=== PATIENT | male | born 2000 | race Caucasian/White ===

== ENCOUNTER 2022-04-14 11:45 | Inpatient (IN) | payer MEDICAID, OTHER ==
[~2022-04-14] VITALS: Ht 175.3 cm; Wt 81.7 kg
[2022-04-14 12:32] LABS: BASOPHILS % (AUTO) 0.7 % (0.0-2.0); HEMATOCRIT 46.9 % (41-53); HEMOGLOBIN 15.9 g/dL (13.5-17.5); LYMPHOCYTES # (AUTO) 1.3 K/uL (1.0-4.8); LYMPHOCYTES % (AUTO) 17.5 % (22.0-44.0); MEAN CORPUSCULAR HEMOGLOBIN 28.1 pg (26.0-34.0); MEAN CORPUSCULAR HGB CONC 33.9 G/dL (31.0-37.0); MEAN CORPUSCULAR VOLUME 83 fL (80-100); MONOCYTES # (AUTO) 0.4 K/uL (0.1-1.0); MONOCYTES % (AUTO) 5.4 % (2.0-9.0); NEUTROPHILS # (AUTO) 5.8 K/uL (1.8-7.7); NEUTROPHILS % (AUTO) 75.4 % (40.0-70.0); PLATELET COUNT (AUTO) 289 K/uL (150-450); RED BLOOD CELL COUNT(AUTO) 5.67 MIL/uL (4.50-5.90); RED CELL DISTRIBUTION WIDTH 12.6 % (11.5-14.5)
[2022-04-14 12:42] LABS: ANION GAP 4 mmol/L (8-16); CALCIUM, TOTAL 9.3 mg/dL (8.8-10.5); CARBON DIOXIDE 32 mmol/L (22-29); CHLORIDE 104 mmol/L (98-107); CREATININE 1.31 mg/dL (0.60-1.30); GLUCOSE,RANDOM 100 mg/dL (70-110); POTASSIUM 3.9 mmol/L (3.5-5.1); SODIUM SERUM 140 mmol/L (136-145); UREA NITROGEN, BLOOD 17 mg/dL (7-18)
[2022-04-14 12:43] LABS: GLOMERULAR FILTR. RATE CALC > 60 mL/min (>60)
[2022-04-14 12:43] LABS: AMPHET/METH SCREEN,URINE POSITIVE (NEGATIVE); BARBITURATE SCREEN, URINE NEGATIVE (NEGATIVE); BENZODIAZEPINES SCREEN,URINE NEGATIVE (NEGATIVE); CANNABINOID SCREEN,URINE NEGATIVE (NEGATIVE); COCAINE SCREEN,URINE NEGATIVE (NEGATIVE); METHADONE SCREEN, URINE NEGATIVE (NEGATIVE); OPIATE SCREEN,URINE NEGATIVE (NEGATIVE)
[2022-04-14 12:44] LABS: PHENCYCLIDINE SCREEN,URINE NEGATIVE (NEGATIVE)
[2022-04-14 12:48] LABS: ALANINE AMINOTRANSFERASE 26 U/L (12-78); ALBUMIN 4.2 g/dL (3.4-5.0); ALKALINE PHOSPHATASE 88 U/L (46-116); ASPARTATE AMINOTRANSFERASE 17 U/L (15-37); BILIRUBIN,TOTAL 0.8 mg/dL (0.1-1.0); TOTAL PROTEIN, SERUM 7.6 g/dL (6.4-8.2)
[2022-04-14] MEDS ORDERED: HALOPERIDOL LACTATE 5 MG/ML VIAL IM ONE (14:15)
[2022-04-14] MEDS ORDERED: DiphenhydrAMINE HCL 50 MG/ML VIAL IM ONE (14:15)
[2022-04-14] MEDS ORDERED: LORazepam 2 MG/ML VIAL IM ONE (14:15)
[2022-04-14] MEDS ORDERED: HALOPERIDOL 5 MG TABLET PO PRN (14:45)
[2022-04-14] MEDS ORDERED: ZOLPIDEM TARTRATE 10 MG TABLET PO PRN (14:45)
[2022-04-14 15:51] LABS: COVID AG,FIA SOURCE NASAL SWAB
[2022-04-14 19:39] VITALS: BP 115/64
[2022-04-15 08:12] VITALS: BP 120/83
[2022-04-15] MEDS: LORazepam 2 MG TABLET PO PRN (10:56)
[2022-04-15 20:13] VITALS: BP 118/78
[2022-04-15] MEDS: OLANZapine 5 MG TABLET PO SCH (20:22)
[2022-04-16 08:10] VITALS: BP 109/66
[2022-04-16] MEDS: OLANZapine 5 MG TABLET PO SCH ×2 (08:44→20:04)
[2022-04-16] MEDS: LORazepam 2 MG TABLET PO PRN (08:44)
[2022-04-16 20:40] VITALS: BP 111/68
[2022-04-17] MEDS: OLANZapine 5 MG TABLET PO SCH ×2 (08:55→21:55)
[2022-04-17 09:38] VITALS: BP 106/64
[2022-04-17 20:15] VITALS: BP 109/62
[2022-04-18 08:16] VITALS: BP 107/66
[2022-04-18] MEDS: OLANZapine 5 MG TABLET PO SCH ×2 (08:48→21:02)
[2022-04-18 20:18] VITALS: BP 106/60
[2022-04-19 08:29] VITALS: BP 103/60
[2022-04-19] MEDS: OLANZapine 5 MG TABLET PO SCH ×2 (09:00→21:05)
[2022-04-19 20:20] VITALS: BP 109/64
[2022-04-20] MEDS: OLANZapine 5 MG TABLET PO SCH ×2 (09:02→20:29)
[2022-04-20 09:45] VITALS: BP 100/59
[2022-04-20 20:12] VITALS: BP 108/65
[2022-04-21 07:01] VITALS: BP 131/74
[2022-04-21 08:23] VITALS: BP 131/70
[2022-04-21] MEDS: OLANZapine 5 MG TABLET PO SCH (09:13)
[2022-04-21] MEDS ORDERED: OLAN5TAB52 PO (11:23)
== END 2022-04-21 13:35 | disposition home or self-care (01) | DRG 751 ==
LOC: EMS 11:47 → B3A 16:10
PROVIDERS: ADMIT Psychiatry & Neurology Psychiatry; ATTEND Psychiatry & Neurology Psychiatry
DX: F29 Unspecified psychosis not due to a substance or known physiological condition (principal); N17.9 Acute kidney failure, unspecified; F10.10 Alcohol abuse, uncomplicated; F20.9 Schizophrenia, unspecified; F17.210 Nicotine dependence, cigarettes, uncomplicated; F19.10 Other psychoactive substance abuse, uncomplicated; Z20.822 Contact with and (suspected) exposure to COVID-19; F15.10 Other stimulant abuse, uncomplicated; Z65.3 Problems related to other legal circumstances; Z71.41 Alcohol abuse counseling and surveillance of alcoholic
CPT/HCPCS: 80053; 85025; 99285; G0480; J1200; J1630; J2060